=== PATIENT | female | born 1985 | race Caucasian/White ===

== ENCOUNTER 2023-01-23 23:36 | Emergency (ER) | payer MEDICAID, SELFPAY ==
[2023-01-23 23:36] VITALS: BP 138/82; PULSE 89; RESP 20; TEMP 36.6; O2SAT 100
--- NOTE | 2023-01-23 23:38 | CT_ITS ---
PROCEDURE INFORMATION: Exam: CT Cervical Spine Without Contrast Exam date and time: 01/23/2023 11:52 PM Age: 37 years old Clinical indication: Neck pain; Additional info: Trauma TECHNIQUE: Imaging protocol: Computed tomography of the cervical spine without contrast. Radiation optimization: All CT scans at this facility use at least one of these dose optimization techniques: automated exposure control; mA and/or kV adjustment per patient size (includes targeted exams where dose is matched to clinical indication); or iterative reconstruction. REPORTING DATA: Count of CT and Cardiac NM exams in prior 12 months: This patient has received [address] and 0 known cardiac nuclear medicine studies in the 12 months prior to the current study. COMPARISON: CT HEAD/BRAIN WO CON 01/23/2023 11:50 PM FINDINGS: Bones/joints: No acute fracture. Normal alignment. No significant disc bulge or herniation. No severe spinal canal stenosis. No significant neural foraminal narrowing. Lungs: Lung apices are normal. Soft tissues: Unremarkable. IMPRESSION: No acute findings.
--- NOTE | 2023-01-23 23:38 | CT_ITS ---
PROCEDURE INFORMATION: Exam: CT Head Without Contrast Exam date and time: 01/23/2023 11:50 PM Age: 37 years old Clinical indication: Pain; Other: Lac; Additional info: Trauma TECHNIQUE: Imaging protocol: Computed tomography of the head without contrast. Radiation optimization: All CT scans at this facility use at least one of these dose optimization techniques: automated exposure control; mA and/or kV adjustment per patient size (includes targeted exams where dose is matched to clinical indication); or iterative reconstruction. REPORTING DATA: Count of CT and Cardiac NM exams in prior 12 months: This patient has received [address] and 0 known cardiac nuclear medicine studies in the 12 months prior to the current study. COMPARISON: No relevant prior studies available. FINDINGS: Brain: Normal. No hemorrhage. Unremarkable white matter. No mass effect. Cerebral ventricles: No ventriculomegaly. Paranasal sinuses: Visualized sinuses are unremarkable. No fluid levels. Mastoid air cells: Visualized mastoid air cells are well aerated. Bones/joints: Unremarkable. No acute fracture. Soft tissues: Right parietal scalp soft tissue swelling with overlying skin nelia. IMPRESSION: No acute intracranial abnormality.
--- NOTE | 2023-01-23 23:38 | XR_ITS ---
PROCEDURE INFORMATION: Exam: XR Chest Exam date and time: 01/24/2023 12:00 AM Age: 37 years old Clinical indication: Pain; Other: Trauma TECHNIQUE: Imaging protocol: Radiologic exam of the chest. Views: 1 view. COMPARISON: CT CERVICAL SPINE WO CON 01/23/2023 11:52 PM FINDINGS: Lungs: Unremarkable. No consolidation. Pleural spaces: Unremarkable. No pleural effusion. No pneumothorax. Heart/Mediastinum: Unremarkable. No cardiomegaly. Bones/joints: Unremarkable. IMPRESSION: No acute findings.
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
--- NOTE | 2023-01-23 23:57 | PC.NURSE ---
pt back to room from ct scan
[2023-01-24 00:03] VITALS: BP 115/82; PULSE 78; O2SAT 98
--- NOTE | 2023-01-24 00:28 | PC.NURSE ---
LINO Garza speaking with hospitalist JACKIE Le at this time
[2023-01-24 00:40] VITALS: BP 120/80; PULSE 80; RESP 18; TEMP 37.2; O2SAT 98; BMI 31.8
[2023-01-24 00:44] VITALS: BP 120/80; PULSE 80; RESP 18; TEMP 36.6; O2SAT 99
== END 2023-01-24 00:46 | disposition home or self-care (01) ==
PROVIDERS: Emergency Provider Emergency Medicine
DX: R51.9 Headache, unspecified (principal); S01.01XA Laceration without foreign body of scalp, initial encounter; V48.4XXA Person boarding or alighting a car injured in noncollision transport accident, initial encounter
CPT/HCPCS: 12001; 70450; 71045; 72125; 90715; 99284

== ENCOUNTER 2023-11-08 23:14 | Outpatient (CLI) | payer OTHER, SELFPAY ==
[2023-11-08 18:35] LABS: Basophils % 0.6 % (0.1-2.0); Eosinophils # 0.1 K/mm3 (0.0-0.4); Hematocrit 40.1 % (37.0-47.0); Lymphocytes # 1.2 K/mm3 (0.7-4.5); Lymphocytes % 26.6 % (10-50); Mean Corpuscular HGB Conc 32.3 g/dL (31.8-35.4); Mean Corpuscular Hemoglobin 31.1 pg (27.0-31.2); Mean Corpuscular Volume 96.3 fl (81-99); Mean Platelet Volume 8.6 fl (7.4-10.4); Monocytes # 0.8 K/mm3 (0.1-1.0); Monocytes % 18.3 % (1.7-9.3); Neutrophils # 2.3 K/mm3 (1.8-7.8); Neutrophils % 52.6 % (37.0-80.0); Platelet Count 282 K/mm3 (142-424); Red Blood Count 4.16 M/mm3 (4.20-5.40); Red Cell Distribution Width 14.5 % (11.5-17.5); White Blood Count 4.5 K/mm3 (4.8-10.8)
[2023-11-08 18:49] LABS: Creatinine,Urine Random 77 mg/dL (Not Estab.)
[2023-11-08 18:51] LABS: Microalbumin/Creatinine Ratio 21.5
[2023-11-08 19:05] LABS: Alanine Aminotransferase 18 U/L (12-78); Albumin Level 3.7 g/dl (3.5-5.0); Albumin/Globulin Ratio 1.3 (1.1-1.8); Alkaline Phosphatase 47 U/L (38-126); Anion Gap 7.4 mEq/L (5-15); Aspartate Amino Transferase 29 U/L (14-36); Bilirubin,Total 0.2 mg/dl (0.2-1.3); Blood Urea Nitrogen 14 mg/dl (7-17); Calcium 8.2 mg/dl (8.4-10.2); Carbon Dioxide 24 mmol/L (22.0-30.0); Chloride 109 mmol/L (98-107); Chol/HDL Ratio 3.3 (1-3.5); Cholesterol 170 mg/dl (140-200); Estimated Glomerular Filt Rate 81 ml/min (>60); GFR (African American) 98 ML/MIN (>60); Globulin 2.9 g/dL (1.3-3.2); Glucose 91 mg/dl (74-100); HDL Cholesterol 51 mg/dl (40-60); Potassium 4.4 mmoL/L (3.5-5.1); Sodium 136 mmol/L (136-145); Total Protein,Serum 6.6 g/dl (6.3-8.2); Triglycerides 94 mg/dl (30-150); VLDL Cholesterol 19 mg/dL (0-40)
[2023-11-08 19:18] LABS: Direct LDL Cholesterol 85.08 mg/dL (100-129)
[2023-11-08 19:24] LABS: 25-OH Vitamin D, Total 19.6 ng/mL (30-100)
[2023-11-08 19:36] LABS: Hemoglobin A1C 4.8 % (4.0-6.0); Thyroid Stimulating Hormone 0.75 uIU/mL (0.465-4.68)
[2023-11-08 19:55] LABS: Vitamin B12 371 pg/mL (239-931)
== END 2023-11-08 23:59 ==
LOC: LAB.DROPOF 23:14
PROVIDERS: PCP Nurse Practitioner; Visit Provider Nurse Practitioner
DX: I10 Essential (primary) hypertension (principal); Z13.1 Encounter for screening for diabetes mellitus; Z13.220 Encounter for screening for lipoid disorders; Z13.29 Encounter for screening for other suspected endocrine disorder; E66.9 Obesity, unspecified; Z68.34 Body mass index [BMI] 34.0-34.9, adult; Z79.84 Long term (current) use of oral hypoglycemic drugs; Z79.899 Other long term (current) drug therapy
CPT/HCPCS: 80053; 80061; 82043; 82306; 82570; 82607; 83036; 84443; 85025

== ENCOUNTER 2024-12-18 13:33 | Outpatient (CLI) | payer OTHER, SELFPAY ==
[2024-12-18 18:44] LABS: Basophils # 0.1 K/mm3 (0-0.2); Basophils % 1.1 % (0.1-2.0); Eosinophils # 0.2 K/mm3 (0.0-0.4); Eosinophils % 2.9 % (0.1-12.0); Hematocrit 38.4 % (37.0-47.0); Hemoglobin 12.5 g/dL (12.2-16.2); Lymphocytes # 2.4 K/mm3 (0.7-4.5); Lymphocytes % 36.5 % (10-50); Mean Corpuscular HGB Conc 32.6 g/dL (31.8-35.4); Mean Corpuscular Hemoglobin 27.4 pg (27.0-31.2); Mean Corpuscular Volume 84.2 fl (81-99); Mean Platelet Volume 9.9 fl (7.4-10.4); Monocytes # 0.7 K/mm3 (0.1-1.0); Monocytes % 10.6 % (1.7-9.3); Neutrophils # 3.2 K/mm3 (1.8-7.8); Neutrophils % 48.7 % (37.0-80.0); Platelet Count 389 K/mm3 (142-424); Red Blood Count 4.56 M/mm3 (4.20-5.40); White Blood Count 6.6 K/mm3 (4.8-10.8)
[2024-12-18 19:40] LABS: Creatinine,Urine Random 109 mg/dL (Not Estab.); Microalbumin < 6.000 mg/L (0-16.7)
[2024-12-18 20:10] LABS: Alanine Aminotransferase 22 U/L (12-78); Albumin Level 4.9 g/dl (3.5-5.0); Albumin/Globulin Ratio 1.6 (1.1-1.8); Alkaline Phosphatase 55 U/L (38-126); Aspartate Amino Transferase 29 U/L (14-36); Bilirubin,Total 0.5 mg/dl (0.2-1.3); Blood Urea Nitrogen 14 mg/dl (7-17); Calcium 9.5 mg/dl (8.4-10.2); Carbon Dioxide 25 mmol/L (22.0-30.0); Chloride 100 mmol/L (98-107); Chol/HDL Ratio 2.2 (1-3.5); Cholesterol 197 mg/dl (140-200); Estimated Glomerular Filt Rate 80 ml/min (>60); GFR (African American) 97 ML/MIN (>60); Globulin 3.1 g/dL (1.3-3.2); Glucose 98 mg/dl (74-100); HDL Cholesterol 88 mg/dl (40-60); Sodium 136 mmol/L (136-145); Triglycerides 86 mg/dl (30-150); VLDL Cholesterol 17 mg/dL (0-40)
[2024-12-18 20:22] LABS: Direct LDL Cholesterol 90.61 mg/dL (100-129)
[2024-12-18 20:29] LABS: 25-OH Vitamin D, Total 27.9 ng/mL (30-100)
[2024-12-18 20:41] LABS: Thyroid Stimulating Hormone 1.44 uIU/mL (0.465-4.68)
[2024-12-18 21:00] LABS: Vitamin B12 431 pg/mL (239-931)
[2024-12-18 22:43] LABS: Hemoglobin A1C 5.1 % (4.0-6.0)
== END 2024-12-18 23:59 | disposition home or self-care (01) ==
LOC: LAB.DROPOF 12-20 10:38
PROVIDERS: PCP Nurse Practitioner; Visit Provider Nurse Practitioner
DX: I10 Essential (primary) hypertension (principal); E55.9 Vitamin D deficiency, unspecified; E66.9 Obesity, unspecified; Z68.33 Body mass index [BMI] 33.0-33.9, adult
CPT/HCPCS: 80053; 80061; 82043; 82306; 82570; 82607; 83036; 84443; 85025